=== PATIENT | female | born 1985 | race Two or more races ===

== ENCOUNTER 2017-08-01 00:36 | Emergency (ER) | payer SELFPAY ==
[~2017-08-01] VITALS: Ht 160 cm; Wt 103.4 kg
[2017-08-01 01:12] LABS: Basophils # (auto) 0 uL; Eosinophils # (auto) 0 uL; Eosinophils % (auto) 0.1 % (0.0-7.0); Hemoglobin 9.9 g/dL (12.2-16.2); Mean Corpuscular Hemoglobin 21.4 pg (28.0-32.0); Monocytes # (auto) 0.7 uL
[2017-08-01 01:14] LABS: Basophils % (auto) 0.4 % (0.0-2.0); Hematocrit 31.7 % (36.0-46.0); Lymphocytes # (auto) 2.5 uL; Lymphocytes % (auto) 30.2 % (10.0-50.0); Mean Corpuscular Hgb Conc. 31.4 g/dL (32.0-36.0); Mean Corpuscular Volume 68.2 fL (80.0-100.0); Mean Platelet Volume 8.4 fL (6.9-10.8); Monocytes % (auto) 8.1 % (0.0-12.0); Neutrophils % (auto) 61.2 % (37.0-80.0); Platelet Count (auto) 306 10^3/uL (140-450); Red Cell Distribution Width 18.5 % (11.8-14.3); White Blood Cell 8.2 10^3/uL (4.4-10.8)
[2017-08-01 01:22] LABS: Urine Bilirubin Negative (Negative); Urine Blood 2+ /uL (Negative); Urine Color Yellow (Yellow); Urine Glucose Normal (Normal); Urine Ketone 1+ (Negative); Urine Mucus FEW (None Seen); Urine Nitrite Negative (Negative); Urine RBC 35 /hpf (0 - 4); Urine Squamous Epithelial Cell FEW /hpf (<5); Urine Urobilinogen Normal (Negative)
[2017-08-01 01:28] LABS: Albumin 3.9 g/dL (3.4-5.0); Anion Gap 12 (5-15); Aspartate Aminotransferase 15 U/L (15-37); Blood Urea Nitrogen 16 mg/dL (7-18); Calcium 8.5 mg/dL (8.5-10.1); Carbon Dioxide 21 mmol/L (21-32); Chloride 105 mmol/L (98-107); GFR African American 106 mL/min; GFR Non-African American 87 mL/min; Glucose 158 mg/dL (74-106); Magnesium 1.8 mg/dL (1.6-2.6); Salicylate < 1.7 mg/dL (2.8-20.0); Sodium 138 mmol/L (136-145)
[2017-08-01 01:31] LABS: Alkaline Phosphatase 70 U/L (45-117); Total Protein 7.4 g/dL (6.4-8.2)
[2017-08-01 01:40] LABS: Acetaminophen 133.8 ug/mL (10-30)
[2017-08-01] MEDS ORDERED: ACETYLCYSTEINE 200MG/ML IV SOL 15,000 MG in D5W 5% 250 ML IV ONE (02:00)
[2017-08-01] MEDS ORDERED: ACETYLCYSTEINE 200MG/ML IV SOLN 30ML IV ONE ×2 (02:08→04:17)
[2017-08-01] MEDS ORDERED: D5W 5% IV ONE (03:00)
[2017-08-01] MEDS ORDERED: ACETYLCYSTEINE IV ONE (03:00)
[2017-08-01] MEDS ORDERED: ONDANSETRON HCL 4 MG/2 ML VIAL IV ONE (04:45)
[2017-08-01] MEDS ORDERED: POTASSIUM CHL 20 Meq TABLET PO ONE (04:45)
[2017-08-01] MEDS ORDERED: ACETYLCYSTEINE IV SCH (07:13)
[2017-08-01] MEDS ORDERED: D5W 5% IV SCH (07:13)
[2017-08-01 13:57] VITALS: BP 146/74
== END 2017-08-01 16:07 | disposition home or self-care (01) ==
LOC: ER 00:38
DX: T39.1X2A Poisoning by 4-Aminophenol derivatives, intentional self-harm, initial encounter (principal); F32.9 Major depressive disorder, single episode, unspecified; R45.851 Suicidal ideations; E87.6 Hypokalemia; Y92.89 Other specified places as the place of occurrence of the external cause
CPT/HCPCS: 36415; 80053; 80307; 80320; 80329; 81001; 81025; 83735; 85025; 93005; 96365; 96366; 96375; 99285; J0132; J2405; J7060; J7070

== ENCOUNTER 2018-03-07 11:41 | Emergency (ER) | payer MEDICAID ==
[~2018-03-07] VITALS: Ht 162.6 cm; Wt 99.8 kg
[2018-03-07 11:51] VITALS: BP 139/76
[2018-03-07] MEDS ORDERED: KETOROLAC TROMETH 60MG/2ML VIAL IM ONE (12:15)
[2018-03-07] MEDS ORDERED: diphenhdrAMINE HCL 50 MG/1 ML VL IM ONE (12:15)
== END 2018-03-07 13:15 | disposition home or self-care (01) ==
LOC: ER 11:44
DX: M43.6 Torticollis (principal); M50.10 Cervical disc disorder with radiculopathy, unspecified cervical region
CPT/HCPCS: 72040; 96372; 99284; J1200; J1885